=== PATIENT | male | born 2000 | race Caucasian/White ===

== ENCOUNTER 2023-12-25 17:18 | Emergency (ER) | payer OTHER ==
[2023-12-25 17:27] VITALS: BP 127/71; PULSE 79; RESP 18; TEMP 97.7; BMI 21.9
[2023-12-25] MEDS ORDERED: KETOROLAC TROMETHAMINE 30 MG/1 ML VIAL ONE (19:24)
[2023-12-25] MEDS: KETOROLAC TROMETHAMINE 30 MG/1 ML VIAL IM ONE (19:27)
== END 2023-12-25 20:34 | disposition home or self-care (01) ==
LOC: JERFT 17:18
DX: S40.012A Contusion of left shoulder, initial encounter (principal); W18.30XA Fall on same level, unspecified, initial encounter
CPT/HCPCS: 73030-TC-LT-FY; 99283-25